=== PATIENT | female | born 1965 | race Hispanic/Latino ===

== ENCOUNTER 2020-03-02 22:10 | Emergency (ER) | payer BC ==
[~2020-03-02] VITALS: Ht 160 cm; Wt 86.2 kg
[2020-03-02] MEDS ORDERED: HYDRALAZINE HCL 20 MG/ML VIAL IV STA (22:47)
[2020-03-02] MEDS ORDERED: LORAZEPAM INJ 2 MG/ML VIAL IV ONE (23:00)
[2020-03-02] MEDS ORDERED: HYDRALAZINE HCL 20 MG/ML VIAL ONE (23:01)
[2020-03-02] MEDS ORDERED: LABETALOL HCL 20 ML ONE ×3 (23:44→23:45)
[2020-03-02] MEDS ORDERED: LABETALOL HCL 5 MG/ML 20ML VIAL IV STA (23:45)
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
[2020-03-03] MEDS ORDERED: ATIVAN1 MG PO (00:20)
[2020-03-03] MEDS ORDERED: CLONIDINE HCL0.2 MG PO (00:20)
== END 2020-03-03 00:38 | disposition home or self-care (01) ==
LOC: FSED 23:20
DX: I16.9 Hypertensive crisis, unspecified (principal); R00.2 Palpitations; F41.9 Anxiety disorder, unspecified; I10 Essential (primary) hypertension; E78.5 Hyperlipidemia, unspecified
CPT/HCPCS: 80053; 82553; 84484; 85025; 93005; 99283; J0360; J2060; J3490